=== PATIENT | male | born 1930 | race Caucasian/White ===

== ENCOUNTER → 2016-10-13 | Outpatient (CLI) | payer MEDICARE, BC ==
[~2016-10-13] MED LIST: ADULT LOW DOSE81 MG PO; ALBUTEROL0.63 MG/3 INH; AVODART 0.5 MG0.5 MG PO; COREG 25MG TAB25 MG PO; FERROUS SULFAT325 M2 PO; K-TAB ER10 MEQ PO; LASIX TAB 20 MG20 MG PO; LEVAQUIN500 MG PO; LOW DOSE ASPIRI81 MG PO; MIRALAX PACK 171 PKT PO; MUCINEX600 MG PO; NITROSTAT 0.40.4 MG SL; NORVASC 5 MG TAB5 MG PO; PLAVIX 75 MG TA75 MG PO; PRAVACHOL20 MG PO; PROAIR HFA8.5 GM INH; PROTONIX40 MG PO; STOOL SOFTENER100 MG PO; TRAMADOL HCL50 MG PO; TYLENOL 325MG325 MG PO; VENOFER 20020 MG/ML INJ; VITAMIN D 11000 UNIT PO; XARELTO20 MG PO
== END ==
LOC: KOH-I 13:12
DX: R10.817 Generalized abdominal tenderness (principal); R31.0 Gross hematuria; R60.0 Localized edema; S61.412A Laceration without foreign body of left hand, initial encounter; D50.8 Other iron deficiency anemias; E53.9 Vitamin B deficiency, unspecified; E55.9 Vitamin D deficiency, unspecified; E78.2 Mixed hyperlipidemia; F41.1 Generalized anxiety disorder; G47.09 Other insomnia; G89.4 Chronic pain syndrome; I10 Essential (primary) hypertension; I25.10 Atherosclerotic heart disease of native coronary artery without angina pectoris; I65.29 Occlusion and stenosis of unspecified carotid artery; I73.89 Other specified peripheral vascular diseases; J30.89 Other allergic rhinitis; K21.9 Gastro-esophageal reflux disease without esophagitis; K59.09 Other constipation; M13.812 Other specified arthritis, left shoulder; M51.36 Other intervertebral disc degeneration, lumbar region; Y99.9 Unspecified external cause status; R93.3 Abnormal findings on diagnostic imaging of other parts of digestive tract
CPT/HCPCS: 74000

== ENCOUNTER → 2016-10-27 | Outpatient (CLI) | payer MEDICARE, BC | LOC: KOH-I 11:34 | DX: J32.8 Other chronic sinusitis (principal); R10.817 Generalized abdominal tenderness; Z88.0 Allergy status to penicillin; Z88.2 Allergy status to sulfonamides | CPT/HCPCS: 70486; 74000 ==

== ENCOUNTER → 2016-12-03 | Outpatient (CLI) | payer MEDICARE, BC ==
[2016-12-03 14:14] LABS: RED BLOOD COUNT 4.62 M/UL (4.20-5.50)
[2016-12-03 14:21] LABS: BUN/CREATININE RATIO 16 (0-10)
== END ==
LOC: LAB 13:22
PROVIDERS: Emergency Medicine
DX: J30.89 Other allergic rhinitis (principal); M13.871 Other specified arthritis, right ankle and foot; R04.0 Epistaxis; R31.0 Gross hematuria
CPT/HCPCS: 36415; 80048; 84550; 85027

== ENCOUNTER 2020-08-05 17:08 | Emergency (ER) | payer MEDICARE, BC ==
[~2020-08-05 17:08] MED LIST changes: +ALBUTEROL1.25 MG/3 INH; +AZITHROMYCIN250 MG PO; +AZITHROMYCIN500 MG PO; +BUSPAR 5MG TABLE5 MG PO; +CATAPRES 0.1MG0.1 MG PO; +CHRONULAC20 GM/30 M PO; +CIPRO500 MG PO; +COLACE 100MG C100 MG PO; +CYANOCOBAL1000 MCG/1 INJ; +DULCOLAX5 MG PO; +ECOTRIN81 MG PO; +FLAGYL500 MG PO; +FLOMAX 0.4 MG0.4 MG PO; +FLONASE 0.05% N16 GM; +HYDRALAZINE HCL10 MG PO; +HYDRALAZINE HCL25 MG PO; +HYDRALAZINE HCL50 MG PO; +K-TAB ER20 MEQ PO; +KEFLEX CAP 500500 MG PO; +KENALOG CREAM 015 GM TOP; +LASIX20 MG PO; +NEURONTIN 100100 MG PO; +NITROSTAT0.4 MG SL; +NORCO 5-325 TA1 EACH PO; +OXYGEN; +POLYETHYLENE GL17 GM PO; +PREDNISONE 20 M20 MG PO; +SYSTANE 0.3-0.1 EACH OP; +ULTRAM50 MG PO
[2020-08-05 19:53] LABS: HEMOGLOBIN 11.4 gm/dl (14.0-17.5); RED BLOOD COUNT 3.92 M/UL (4.20-5.50); WHITE BLOOD COUNT 6.1 K/UL (4.5-11.0)
[2020-08-05 20:11] LABS: BUN/CREATININE RATIO 21 (0-10)
[2020-08-06] MEDS ORDERED: NORCO 5-325 TA1 EACH PO (00:10)
== END 2020-08-06 00:51 | disposition home or self-care (01) ==
LOC: ER1 17:08
PROVIDERS: Emergency Medicine
DX: K56.7 Ileus, unspecified (principal); C67.9 Malignant neoplasm of bladder, unspecified; J44.9 Chronic obstructive pulmonary disease, unspecified; I10 Essential (primary) hypertension; F17.200 Nicotine dependence, unspecified, uncomplicated; Z86.79 Personal history of other diseases of the circulatory system; Z88.0 Allergy status to penicillin; Z88.2 Allergy status to sulfonamides; Z98.890 Other specified postprocedural states
CPT/HCPCS: 80053; 81001; 83605; 83690; 85025; 87086; 93005; 99284; Q9967

== ENCOUNTER 2020-08-27 19:58 | Emergency (ER) | payer MEDICARE, BC ==
[2020-08-28 01:03] LABS: RED BLOOD COUNT 3.9 M/UL (4.20-5.50); WHITE BLOOD COUNT 5.6 K/UL (4.5-11.0)
[2020-08-28 01:20] LABS: BUN/CREATININE RATIO 20 (0-10)
[2020-08-28] MEDS ORDERED: FLAGYL500 MG PO (05:43)
[2020-08-28] MEDS ORDERED: CIPRO500 MG PO (05:43)
== END 2020-08-28 06:45 | disposition home or self-care (01) ==
LOC: ER1 19:58
PROVIDERS: Emergency Medicine
DX: K57.33 Diverticulitis of large intestine without perforation or abscess with bleeding (principal); N39.0 Urinary tract infection, site not specified; I48.91 Unspecified atrial fibrillation; F17.210 Nicotine dependence, cigarettes, uncomplicated; Z85.51 Personal history of malignant neoplasm of bladder
CPT/HCPCS: 80053; 81001; 83690; 85025; 87086; 96374; 96375; 99284; J0690; J2270; J2405; Q9967

== ENCOUNTER → 2020-10-01 | Outpatient (CLI) | payer MEDICARE, BC ==
[~2020-10-01] MED LIST changes: +MACROBID 100 M100 MG PO
[2020-10-01 13:49] LABS: HEMOGLOBIN 11.2 gm/dl (14.0-17.5); RED BLOOD COUNT 4.2 M/UL (4.20-5.50); WHITE BLOOD COUNT 6.2 K/UL (4.5-11.0)
[2020-10-01 14:19] LABS: BUN/CREATININE RATIO 29 (0-10)
[2020-10-03 13:14] LABS: CHOLESTEROL, TOTAL 145 mg/dL (100-199); HDL SIZE 10.8 nm (>=9.2); HDL-C 56 mg/dL (>39); LARGE HDL-P 9.9 umol/L (>=4.8); LDL-C 75 mg/dL (0-99); LDL-P 719 nmol/L (<1000); LP-IR SCORE <25 (<=45); SMALL LDL-P <90 nmol/L (<=527); TRIGLYCERIDES 72 mg/dL (0-149); VLDL SIZE 43.4 nm (<=46.6)
== END ==
LOC: LAB 13:19
PROVIDERS: Emergency Medicine
DX: I25.10 Atherosclerotic heart disease of native coronary artery without angina pectoris (principal); E78.2 Mixed hyperlipidemia; N40.0 Benign prostatic hyperplasia without lower urinary tract symptoms
CPT/HCPCS: 36415; 80053; 85025

== ENCOUNTER → 2020-11-06 | Outpatient (CLI) | payer MEDICARE, BC | LOC: CT 12:23 | DX: R31.0 Gross hematuria (principal); N32.89 Other specified disorders of bladder | CPT/HCPCS: 36415; 82565; 84520; 87086; Q9967 ==

== ENCOUNTER → 2020-11-26 | Outpatient (CLI) | payer MEDICARE, BC | LOC: RAD 12:39 | DX: M25.551 Pain in right hip (principal); M25.552 Pain in left hip; M25.522 Pain in left elbow; M79.622 Pain in left upper arm; M85.88 Other specified disorders of bone density and structure, other site | CPT/HCPCS: 73060; 73080; 73522 ==

== ENCOUNTER → 2020-12-13 | Outpatient (CLI) | payer MEDICARE, BC ==
[2020-12-13 09:34] LABS: HEMOGLOBIN 10.9 gm/dl (14.0-17.5); RED BLOOD COUNT 4.46 M/UL (4.20-5.50); WHITE BLOOD COUNT 6.1 K/UL (4.5-11.0)
[2020-12-13 10:00] LABS: BUN/CREATININE RATIO 21 (0-10)
== END ==
LOC: LAB 08:46
PROVIDERS: Family Medicine
DX: E78.5 Hyperlipidemia, unspecified (principal); K59.09 Other constipation; D64.9 Anemia, unspecified; E53.8 Deficiency of other specified B group vitamins
CPT/HCPCS: 36415; 80053; 80061; 82607; 82728; 83540; 83550; 84443; 85027; 85045

== ENCOUNTER 2020-12-29 11:24 | Emergency (ER) | payer MEDICARE, BC ==
[~2020-12-29 11:24] MED LIST changes: -MACROBID 100 M100 MG PO
[2020-12-29 12:00] LABS: HEMOGLOBIN 10.6 gm/dl (14.0-17.5); RED BLOOD COUNT 4.32 M/UL (4.20-5.50); WHITE BLOOD COUNT 6.8 K/UL (4.5-11.0)
[2020-12-29 12:36] LABS: BUN/CREATININE RATIO 21 (0-10)
[2020-12-29] MEDS ORDERED: MACROBID 100 M100 MG PO (13:53)
== END 2020-12-29 14:05 | disposition home or self-care (01) ==
LOC: ER1 11:24
PROVIDERS: Internal Medicine
DX: N39.0 Urinary tract infection, site not specified (principal); C67.9 Malignant neoplasm of bladder, unspecified; I25.2 Old myocardial infarction; I48.91 Unspecified atrial fibrillation; Z95.1 Presence of aortocoronary bypass graft; Z90.49 Acquired absence of other specified parts of digestive tract; Z86.79 Personal history of other diseases of the circulatory system; Z88.0 Allergy status to penicillin; Z88.2 Allergy status to sulfonamides
CPT/HCPCS: 70450; 71046; 80053; 81001; 84484; 85025; 99285; J0696

== ENCOUNTER 2021-03-12 22:31 | Emergency (ER) | payer MEDICARE, BC ==
[~2021-03-12 22:31] MED LIST changes: +MACROBID 100 M100 MG PO
[2021-03-13] MEDS ORDERED: MACROBID 100 M100 MG PO (03:01)
== END 2021-03-13 04:00 | disposition home or self-care (01) ==
LOC: ER1 22:31
DX: S56.912A Strain of unspecified muscles, fascia and tendons at forearm level, left arm, initial encounter (principal); N39.0 Urinary tract infection, site not specified; W45.8XXA Other foreign body or object entering through skin, initial encounter
CPT/HCPCS: 12002; 81001; 87086; 99283